=== PATIENT | male | born 1955 | race Caucasian/White ===

== ENCOUNTER 2017-08-04 18:35 | Inpatient (IN) ==
[2017-08-04] MEDS ORDERED: chlordiazePOXIDE 25 MG CAPSULE PO PRN (22:03)
[2017-08-04 22:43] LABS: Basophils % 0.4 % (0.0-0.8); Eosinophils % 0.2 % (0.00-10.9); Hematocrit 20.3 VOL% (42.0-52.0); Hemoglobin 7.2 GM/DL (14.0-18.0); Immature Granulocytes % 0.4 %; Immature Granulocytes Absolute 0.02 #; Lymphocytes % 18.5 % (21.2-54.2); Mean Corpuscular HGB Conc 35.5 GM/DL (32-36); Mean Corpuscular Hemoglobin 37 PG (27-34); Mean Corpuscular Volume 105.2 FL (87-102); Mean Platelet Volume 9.6 FL (9.6-12.0); Monocytes # 0.4 10*3/uL (0.11-0.8); Monocytes % 7.5 % (1.7-12.7); Neutrophils # 3.9 10*3/uL (1.4-7.4); Platelet Count 149 T/CUMM (130-400); Red Blood Count 1.93 MC/CUMM (3.8-5.5); Red Cell Distribution Width 11.6 % (9.3-17.3); White Blood Count 5.4 T/CUMM (4-12)
[2017-08-04] MEDS: LEVOFLOXACIN INJ 500 MG in PREMIX 1 EACH IV SCH (22:53)
[2017-08-04] MEDS: SODIUM CHLORIDE 0.9% 1,000 ML IV SCH (22:53)
[2017-08-04 23:25] LABS: Folate 6.1 NG/ML (5.4-24.0)
[2017-08-05] MEDS ORDERED: SODIUM CHLORIDE 0.9% 1,000 ML IV PRN (01:47)
[2017-08-05 08:03] LABS: Basophils % 0.5 % (0.0-0.8); Eosinophils % 0.5 % (0.00-10.9); Hematocrit 22.7 VOL% (42.0-52.0); Hemoglobin 8.3 GM/DL (14.0-18.0); Immature Granulocytes % 0.5 %; Immature Granulocytes Absolute 0.03 #; Lymphocytes # 1.2 10*3/uL (1.4-4.0); Lymphocytes % 22.1 % (21.2-54.2); Mean Corpuscular HGB Conc 36.6 GM/DL (32-36); Mean Corpuscular Hemoglobin 36 PG (27-34); Mean Corpuscular Volume 98.7 FL (87-102); Mean Platelet Volume 9.7 FL (9.6-12.0); Monocytes # 0.4 10*3/uL (0.11-0.8); Monocytes % 6.9 % (1.7-12.7); Neutrophils # 3.8 10*3/uL (1.4-7.4); Neutrophils % 69.5 % (38.7-73.9); Platelet Count 151 T/CUMM (130-400); Red Cell Distribution Width 13.9 % (9.3-17.3); White Blood Count 5.5 T/CUMM (4-12)
[2017-08-05 08:37] LABS: Albumin 2.2 G/DL (3.4-5.0); Bilirubin,Total 1.1 MG/DL (0.2-1.0); Calcium 7.8 MG/DL (8.5-10.1); Osmolality,Calculated 278.4 MOS/KG (273-304); Total Protein 5.4 G/DL (6.4-8.3)
[2017-08-05] MEDS ORDERED: PNEUMOCOCCAL VACCINE (13 VALENT) 0.5 ML SYRINGE IM ONE (09:00)
[2017-08-05 10:46] LABS: INR 1.1; PT Patient Result 11.6 SECS
[2017-08-05] MEDS ORDERED: DIAZEPAM 5 MG TABLET PO ONE (11:57)
[2017-08-05] MEDS: FOLIC ACID 1 MG TABLET PO SCH ×2 (12:13→15:18)
[2017-08-05] MEDS: MULTIVITAMIN (CENTRUM) TABLET PO SCH ×2 (12:13→15:17)
[2017-08-05] MEDS: THIAMINE 100 MG TABLET PO SCH ×2 (12:14→15:17)
[2017-08-05] MEDS: SODIUM CHLORIDE 0.9% 1,000 ML IV SCH ×2 (12:16→17:10)
[2017-08-05 13:31] LABS: HIV Antigen/Antibody Result Nonreactive (Nonreactive)
[2017-08-05] MEDS: FLUCONAZOLE 100 MG TABLET PO SCH (15:18)
[2017-08-05] MEDS ORDERED: HYDROmorphone 2 MG/1 ML VIAL IV ONE ×2 (18:25)
[2017-08-05] MEDS: LABETALOL 200 MG TABLET PO SCH (21:26)
[2017-08-05] MEDS: PANTOPRAZOLE 40 MG TABLET PO SCH (21:26)
[2017-08-05] MEDS: MINOXIDIL 10 MG TABLET PO SCH (21:26)
[2017-08-05] MEDS: LEVOFLOXACIN INJ 500 MG in PREMIX 1 EACH IV SCH (21:31)
[2017-08-06] MEDS: SODIUM CHLORIDE 0.9% 1,000 ML IV SCH ×2 (04:32→14:56)
[2017-08-06 05:13] LABS: Basophils % 0.4 % (0.0-0.8); Eosinophils % 0.6 % (0.00-10.9); Hematocrit 22.8 VOL% (42.0-52.0); Hemoglobin 8.4 GM/DL (14.0-18.0); Immature Granulocytes % 0.4 %; Immature Granulocytes Absolute 0.02 #; Lymphocytes # 1.2 10*3/uL (1.4-4.0); Lymphocytes % 21.5 % (21.2-54.2); Mean Corpuscular HGB Conc 36.8 GM/DL (32-36); Mean Corpuscular Hemoglobin 36 PG (27-34); Mean Platelet Volume 9.8 FL (9.6-12.0); Monocytes # 0.4 10*3/uL (0.11-0.8); Monocytes % 7.9 % (1.7-12.7); Neutrophils # 3.8 10*3/uL (1.4-7.4); Neutrophils % 69.2 % (38.7-73.9); Platelet Count 130 T/CUMM (130-400); Red Blood Count 2.35 MC/CUMM (3.8-5.5); Red Cell Distribution Width 15.1 % (9.3-17.3); White Blood Count 5.5 T/CUMM (4-12)
[2017-08-06 05:34] LABS: Calcium 7.6 MG/DL (8.5-10.1); Osmolality,Calculated 279.3 MOS/KG (273-304); Potassium 2.9 MMOL/L (3.5-5.1)
[2017-08-06] MEDS: PANTOPRAZOLE 40 MG TABLET PO SCH ×2 (06:27→18:52)
[2017-08-06] MEDS ORDERED: FLUCONAZOLE 100 MG TABLET PO SCH (09:00)
[2017-08-06] MEDS: FLUCONAZOLE 100 MG TABLET PO SCH (09:04)
[2017-08-06] MEDS: THIAMINE 100 MG TABLET PO SCH (09:04)
[2017-08-06] MEDS: BISACODYL 5 MG TABLET PO SCH ×2 (09:04→15:18)
[2017-08-06] MEDS: LABETALOL 200 MG TABLET PO SCH ×2 (09:04→21:18)
[2017-08-06] MEDS: MULTIVITAMIN (CENTRUM) TABLET PO SCH (09:05)
[2017-08-06] MEDS: FOLIC ACID 1 MG TABLET PO SCH (09:05)
[2017-08-06] MEDS: MINOXIDIL 10 MG TABLET PO SCH ×2 (09:05→21:17)
[2017-08-06] MEDS ORDERED: SODIUM CHLORIDE 0.9% 1,000 ML IV PRN (11:46)
[2017-08-06] MEDS ORDERED: FUROSEMIDE 20 MG/2 ML VIAL IV PRN (11:46)
[2017-08-06] MEDS ORDERED: POTASSIUM CHLORIDE 20 MEQ TABLET PO SCH (15:00)
[2017-08-06] MEDS: POTASSIUM CHLORIDE 20 MEQ/15 ML UDCUP PO SCH ×2 (15:19→21:25)
[2017-08-06] MEDS ORDERED: POLYETHYLENE GLYCOL POWDER 255 GM BOTTLE PO ONE (18:00)
[2017-08-06] MEDS ORDERED: MAGNESIUM CITRATE 300 ML BOTTLE PO ONE (21:00)
[2017-08-06] MEDS ORDERED: POTASSIUM CHLORIDE 20 MEQ/15 ML UDCUP PO SCH (21:00)
[2017-08-06] MEDS: LEVOFLOXACIN INJ 500 MG in PREMIX 1 EACH IV SCH (21:27)
[2017-08-07] MEDS: BISACODYL 5 MG TABLET PO SCH (00:14)
[2017-08-07 07:08] LABS: Basophils % 0.3 % (0.0-0.8); Eosinophils % 0.5 % (0.00-10.9); Hematocrit 31.8 VOL% (42.0-52.0); Hemoglobin 11.1 GM/DL (14.0-18.0); Immature Granulocytes % 0.3 %; Immature Granulocytes Absolute 0.02 #; Lymphocytes # 1.2 10*3/uL (1.4-4.0); Lymphocytes % 18.5 % (21.2-54.2); Mean Corpuscular HGB Conc 34.9 GM/DL (32-36); Mean Corpuscular Hemoglobin 34 PG (27-34); Mean Corpuscular Volume 96.7 FL (87-102); Mean Platelet Volume 9.9 FL (9.6-12.0); Monocytes # 0.7 10*3/uL (0.11-0.8); Neutrophils # 4.6 10*3/uL (1.4-7.4); Neutrophils % 70.4 % (38.7-73.9); Platelet Count 126 T/CUMM (130-400); Red Blood Count 3.29 MC/CUMM (3.8-5.5); Red Cell Distribution Width 16.2 % (9.3-17.3); White Blood Count 6.5 T/CUMM (4-12)
[2017-08-07 07:35] LABS: Calcium 7.8 MG/DL (8.5-10.1); Potassium 3.2 MMOL/L (3.5-5.1)
[2017-08-07] MEDS ORDERED: PROPOFOL 200 MG/20 ML VIAL IV ONE (10:07)
[2017-08-07] MEDS: MINOXIDIL 10 MG TABLET PO SCH ×2 (11:29→21:00)
[2017-08-07] MEDS: MULTIVITAMIN (CENTRUM) TABLET PO SCH (11:29)
[2017-08-07] MEDS: FOLIC ACID 1 MG TABLET PO SCH (11:29)
[2017-08-07] MEDS: FLUCONAZOLE 100 MG TABLET PO SCH ×2 (11:29→14:24)
[2017-08-07] MEDS: PANTOPRAZOLE 40 MG TABLET PO SCH ×2 (11:29→21:01)
[2017-08-07] MEDS: THIAMINE 100 MG TABLET PO SCH (11:30)
[2017-08-07] MEDS: POTASSIUM CHLORIDE 20 MEQ/15 ML UDCUP PO SCH ×3 (11:30→21:06)
[2017-08-07] MEDS: LABETALOL 200 MG TABLET PO SCH ×2 (11:30→21:06)
[2017-08-07] MEDS: SODIUM CHLORIDE 0.9% 1,000 ML IV SCH ×3 (11:46→21:07)
[2017-08-07] MEDS: LEVOFLOXACIN INJ 500 MG in PREMIX 1 EACH IV SCH (21:10)
[2017-08-08 05:39] LABS: Basophils % 0.6 % (0.0-0.8); Eosinophils # 0.1 10*3/uL (0.0-0.87); Hematocrit 31.4 VOL% (42.0-52.0); Hemoglobin 11.3 GM/DL (14.0-18.0); Immature Granulocytes % 0.4 %; Immature Granulocytes Absolute 0.03 #; Lymphocytes # 1.5 10*3/uL (1.4-4.0); Lymphocytes % 21.8 % (21.2-54.2); Mean Corpuscular Hemoglobin 34 PG (27-34); Mean Corpuscular Volume 94.3 FL (87-102); Monocytes # 0.6 10*3/uL (0.11-0.8); Monocytes % 8.9 % (1.7-12.7); Neutrophils # 4.8 10*3/uL (1.4-7.4); Neutrophils % 67.3 % (38.7-73.9); Platelet Count 135 T/CUMM (130-400); Red Blood Count 3.33 MC/CUMM (3.8-5.5); White Blood Count 7.1 T/CUMM (4-12)
[2017-08-08 06:07] LABS: Calcium 7.4 MG/DL (8.5-10.1); Osmolality,Calculated 281.8 MOS/KG (273-304); Potassium 3.4 MMOL/L (3.5-5.1)
[2017-08-08] MEDS: FOLIC ACID 1 MG TABLET PO SCH (09:56)
[2017-08-08] MEDS: MULTIVITAMIN (CENTRUM) TABLET PO SCH (09:56)
[2017-08-08] MEDS: LABETALOL 200 MG TABLET PO SCH (09:56)
[2017-08-08] MEDS: FLUCONAZOLE 100 MG TABLET PO SCH (09:56)
[2017-08-08] MEDS: SODIUM CHLORIDE 0.9% 1,000 ML IV SCH (09:56)
[2017-08-08] MEDS: PANTOPRAZOLE 40 MG TABLET PO SCH (09:56)
[2017-08-08] MEDS: THIAMINE 100 MG TABLET PO SCH (09:56)
[2017-08-08] MEDS: MINOXIDIL 10 MG TABLET PO SCH (09:56)
[2017-08-08] MEDS: POTASSIUM CHLORIDE 20 MEQ/15 ML UDCUP PO SCH (10:00)
[2017-08-08 14:01] VITALS: BP 114/67
== END 2017-08-08 15:10 | disposition home or self-care (01) | DRG 686 ==
LOC: SUATTDRO 20:53 → N.4E 20:53
PROVIDERS: ADMIT Internal Medicine; ATTEND Internal Medicine

== ENCOUNTER 2017-08-13 05:45 | Inpatient (IN) ==
[2017-08-13] MEDS ORDERED: cefTRIAXone 1,000 MG VIAL ONE (06:05)
[2017-08-13] MEDS ORDERED: ONDANSETRON 4 MG/2 ML VIAL IV PRN (08:30)
[2017-08-13] MEDS ORDERED: MAGNESIUM SULF RIDER 4 GM in PREMIX 1 EACH IV PRN (08:30)
[2017-08-13] MEDS ORDERED: ACETAMINOPHEN 325 MG TABLET PO PRN (08:30)
[2017-08-13] MEDS ORDERED: ALBUTEROL 2.5 MG/3 ML NEB RESP TX PRN (08:54)
[2017-08-13] MEDS: PANTOPRAZOLE 40 MG TABLET PO SCH (10:17)
[2017-08-13] MEDS: LEVOFLOXACIN 500 MG TABLET PO SCH (16:40)
[2017-08-13] MEDS: FUROSEMIDE 40 MG/4 ML VIAL IV SCH (16:44)
[2017-08-13] MEDS: CLINDAMYCIN 300 MG CAPSULE PO SCH (21:35)
[2017-08-13] MEDS: CARVEDILOL 3.125 MG TABLET PO SCH (21:35)
[2017-08-14 05:55] LABS: Eosinophils % 0.4 % (0.00-10.9); Hematocrit 28.5 VOL% (42.0-52.0); Immature Granulocytes % 0.7 %; Immature Granulocytes Absolute 0.05 #; Lymphocytes % 13.9 % (21.2-54.2); Mean Corpuscular HGB Conc 35.1 GM/DL (32-36); Mean Corpuscular Hemoglobin 34 PG (27-34); Mean Corpuscular Volume 96.9 FL (87-102); Monocytes # 0.6 10*3/uL (0.11-0.8); Monocytes % 8.3 % (1.7-12.7); Neutrophils # 5.5 10*3/uL (1.4-7.4); Neutrophils % 76.7 % (38.7-73.9); Platelet Count 246 T/CUMM (130-400); Red Blood Count 2.94 MC/CUMM (3.8-5.5); Red Cell Distribution Width 15.1 % (9.3-17.3); White Blood Count 7.2 T/CUMM (4-12)
[2017-08-14 06:18] LABS: Calcium 7.8 MG/DL (8.5-10.1); Potassium 3.9 MMOL/L (3.5-5.1)
[2017-08-14] MEDS: CLINDAMYCIN 300 MG CAPSULE PO SCH ×3 (07:26→20:59)
[2017-08-14] MEDS ORDERED: SPIRONOLACTONE 25 MG TABLET PO SCH (09:00)
[2017-08-14] MEDS: LISINOPRIL 2.5 MG TABLET PO SCH (09:23)
[2017-08-14] MEDS: ASPIRIN EC 81 MG TABLET PO SCH (09:24)
[2017-08-14] MEDS: FUROSEMIDE 40 MG/4 ML VIAL IV SCH ×2 (09:24→15:00)
[2017-08-14] MEDS: LEVOFLOXACIN 500 MG TABLET PO SCH (09:24)
[2017-08-14] MEDS: CARVEDILOL 3.125 MG TABLET PO SCH ×2 (09:24→20:59)
[2017-08-14] MEDS: PANTOPRAZOLE 40 MG TABLET PO SCH (09:24)
[2017-08-14] MEDS: MAGNESIUM SULF RIDER 2 GM in PREMIX 1 EACH IV PRN (10:38)
[2017-08-14] MEDS: CYPROHEPTADINE 4 MG TABLET PO SCH (20:59)
[2017-08-15] MEDS ORDERED: SODIUM CHLORIDE 0.45% 1,000 ML IV SCH (05:00)
[2017-08-15 05:39] LABS: Basophils % 0.2 % (0.0-0.8); Eosinophils # 0.1 10*3/uL (0.0-0.87); Eosinophils % 1.1 % (0.00-10.9); Hematocrit 28.1 VOL% (42.0-52.0); Hemoglobin 9.7 GM/DL (14.0-18.0); Immature Granulocytes % 0.8 %; Immature Granulocytes Absolute 0.05 #; Lymphocytes # 1.1 10*3/uL (1.4-4.0); Lymphocytes % 16.4 % (21.2-54.2); Mean Corpuscular HGB Conc 34.5 GM/DL (32-36); Mean Corpuscular Hemoglobin 33 PG (27-34); Mean Corpuscular Volume 95.9 FL (87-102); Mean Platelet Volume 10.9 FL (9.6-12.0); Monocytes # 0.5 10*3/uL (0.11-0.8); Monocytes % 8.1 % (1.7-12.7); Neutrophils # 4.7 10*3/uL (1.4-7.4); Neutrophils % 73.4 % (38.7-73.9); Platelet Count 261 T/CUMM (130-400); Red Blood Count 2.93 MC/CUMM (3.8-5.5); Red Cell Distribution Width 14.9 % (9.3-17.3); White Blood Count 6.4 T/CUMM (4-12)
[2017-08-15] MEDS: MAGNESIUM SULF RIDER 2 GM in PREMIX 1 EACH IV PRN (05:59)
[2017-08-15] MEDS ORDERED: DIAZEPAM 5 MG TABLET PO ONE (06:00)
[2017-08-15] MEDS ORDERED: diphenhydrAMINE CAP 25 MG CAPSULE PO ONE (06:00)
[2017-08-15 06:11] LABS: Calcium 7.7 MG/DL (8.5-10.1); Osmolality,Calculated 272.8 MOS/KG (273-304); Potassium 3.1 MMOL/L (3.5-5.1)
[2017-08-15 06:17] LABS: Folate 5.7 NG/ML (5.4-24.0)
[2017-08-15] MEDS: CLINDAMYCIN 300 MG CAPSULE PO SCH ×3 (06:50→21:14)
[2017-08-15] MEDS: ASPIRIN EC 81 MG TABLET PO SCH ×2 (07:01→09:57)
[2017-08-15] MEDS: LISINOPRIL 2.5 MG TABLET PO SCH ×2 (07:02→09:56)
[2017-08-15] MEDS: CARVEDILOL 3.125 MG TABLET PO SCH ×3 (07:02→21:14)
[2017-08-15] MEDS ORDERED: HEPARIN/NACL 0.9% 2 UNITS/ML 2,000 ML IV ONE (07:23)
[2017-08-15] MEDS ORDERED: MIDAZOLAM 2 MG/2 ML VIAL ONE (07:23)
[2017-08-15] MEDS ORDERED: LIDOCAINE 1% 20 ML VIAL ONE (07:23)
[2017-08-15] MEDS ORDERED: fentaNYL 100 MCG/2 ML VIAL ONE (07:23)
[2017-08-15] MEDS: FUROSEMIDE 40 MG/4 ML VIAL IV SCH ×2 (09:04→15:16)
[2017-08-15] MEDS: SPIRONOLACTONE 25 MG TABLET PO SCH (09:56)
[2017-08-15] MEDS: MULTIVITAMIN (CENTRUM) TABLET PO SCH (09:56)
[2017-08-15] MEDS: LEVOFLOXACIN 500 MG TABLET PO SCH (09:56)
[2017-08-15] MEDS: PANTOPRAZOLE 40 MG TABLET PO SCH (09:57)
[2017-08-15] MEDS: FOLIC ACID 1 MG TABLET PO SCH (09:57)
[2017-08-15] MEDS: POTASSIUM CHLORIDE 20 MEQ TABLET PO SCH (13:42)
[2017-08-15] MEDS ORDERED: MAGNESIUM HYDROXIDE SUSP 30 ML UDCUP PO PRN (16:19)
[2017-08-15] MEDS: DOCUSATE SODIUM 100 MG CAPSULE PO PRN (21:14)
[2017-08-15] MEDS: CYPROHEPTADINE 4 MG TABLET PO SCH (21:14)
[2017-08-16 04:58] LABS: Basophils % 0.3 % (0.0-0.8); Eosinophils # 0.1 10*3/uL (0.0-0.87); Eosinophils % 1.2 % (0.00-10.9); Hematocrit 30.5 VOL% (42.0-52.0); Hemoglobin 10.3 GM/DL (14.0-18.0); Immature Granulocytes % 0.8 %; Immature Granulocytes Absolute 0.06 #; Lymphocytes # 1.4 10*3/uL (1.4-4.0); Lymphocytes % 19.2 % (21.2-54.2); Mean Corpuscular HGB Conc 33.8 GM/DL (32-36); Mean Corpuscular Hemoglobin 33 PG (27-34); Mean Corpuscular Volume 97.4 FL (87-102); Mean Platelet Volume 10.5 FL (9.6-12.0); Monocytes # 0.7 10*3/uL (0.11-0.8); Monocytes % 9.2 % (1.7-12.7); Neutrophils # 5.2 10*3/uL (1.4-7.4); Neutrophils % 69.3 % (38.7-73.9); Platelet Count 289 T/CUMM (130-400); Red Blood Count 3.13 MC/CUMM (3.8-5.5); Red Cell Distribution Width 14.6 % (9.3-17.3); White Blood Count 7.5 T/CUMM (4-12)
[2017-08-16] MEDS: CLINDAMYCIN 300 MG CAPSULE PO SCH ×3 (05:28→21:23)
[2017-08-16 05:33] LABS: Calcium 7.8 MG/DL (8.5-10.1); Magnesium 2.1 MG/DL (1.8-2.4); Osmolality,Calculated 276.5 MOS/KG (273-304); Potassium 3.5 MMOL/L (3.5-5.1)
[2017-08-16 05:35] LABS: Calcium 7.8 MG/DL (8.5-10.1); Osmolality,Calculated 276.5 MOS/KG (273-304); Potassium 3.6 MMOL/L (3.5-5.1)
[2017-08-16 05:42] LABS: % Iron Saturation 44.4 % (18-50); Ferritin 1703.1 ng/ml (26-388)
[2017-08-16 05:44] LABS: Folate 8.1 NG/ML (5.4-24.0)
[2017-08-16] MEDS: FUROSEMIDE 40 MG/4 ML VIAL IV SCH ×2 (08:38→15:11)
[2017-08-16] MEDS: MULTIVITAMIN (CENTRUM) TABLET PO SCH (08:39)
[2017-08-16] MEDS: PANTOPRAZOLE 40 MG TABLET PO SCH (08:39)
[2017-08-16] MEDS: LISINOPRIL 2.5 MG TABLET PO SCH (08:39)
[2017-08-16] MEDS: FOLIC ACID 1 MG TABLET PO SCH (08:40)
[2017-08-16] MEDS: SPIRONOLACTONE 25 MG TABLET PO SCH (08:40)
[2017-08-16] MEDS: DOCUSATE SODIUM 100 MG CAPSULE PO PRN (08:40)
[2017-08-16] MEDS: CARVEDILOL 3.125 MG TABLET PO SCH (08:40)
[2017-08-16] MEDS: LEVOFLOXACIN 500 MG TABLET PO SCH (08:40)
[2017-08-16] MEDS: ASPIRIN EC 81 MG TABLET PO SCH (08:41)
[2017-08-16] MEDS: POTASSIUM CHLORIDE 20 MEQ TABLET PO SCH (08:50)
[2017-08-16] MEDS: CYPROHEPTADINE 4 MG TABLET PO SCH (21:23)
[2017-08-17 05:34] LABS: Basophils % 0.4 % (0.0-0.8); Eosinophils # 0.1 10*3/uL (0.0-0.87); Eosinophils % 1.4 % (0.00-10.9); Hematocrit 32.7 VOL% (42.0-52.0); Hemoglobin 11.5 GM/DL (14.0-18.0); Immature Granulocytes % 0.8 %; Immature Granulocytes Absolute 0.07 #; Lymphocytes # 1.7 10*3/uL (1.4-4.0); Lymphocytes % 18.4 % (21.2-54.2); Mean Corpuscular HGB Conc 35.2 GM/DL (32-36); Mean Corpuscular Hemoglobin 34 PG (27-34); Mean Corpuscular Volume 96.5 FL (87-102); Mean Platelet Volume 10.7 FL (9.6-12.0); Monocytes % 10.5 % (1.7-12.7); Neutrophils # 6.2 10*3/uL (1.4-7.4); Neutrophils % 68.5 % (38.7-73.9); Platelet Count 373 T/CUMM (130-400); Red Blood Count 3.39 MC/CUMM (3.8-5.5); Red Cell Distribution Width 14.7 % (9.3-17.3); White Blood Count 9.1 T/CUMM (4-12)
[2017-08-17 06:03] LABS: Calcium 8.3 MG/DL (8.5-10.1); Osmolality,Calculated 275.5 MOS/KG (273-304); Potassium 4.8 MMOL/L (3.5-5.1)
[2017-08-17] MEDS: CLINDAMYCIN 300 MG CAPSULE PO SCH ×3 (06:10→21:55)
[2017-08-17] MEDS: POTASSIUM CHLORIDE 20 MEQ TABLET PO SCH (08:27)
[2017-08-17] MEDS: SPIRONOLACTONE 25 MG TABLET PO SCH (08:27)
[2017-08-17] MEDS: LEVOFLOXACIN 500 MG TABLET PO SCH (08:27)
[2017-08-17] MEDS: LISINOPRIL 2.5 MG TABLET PO SCH (08:27)
[2017-08-17] MEDS: CARVEDILOL 3.125 MG TABLET PO SCH (08:28)
[2017-08-17] MEDS: FOLIC ACID 1 MG TABLET PO SCH (08:28)
[2017-08-17] MEDS: FUROSEMIDE 40 MG/4 ML VIAL IV SCH (08:28)
[2017-08-17] MEDS: ASPIRIN EC 81 MG TABLET PO SCH (08:28)
[2017-08-17] MEDS: MULTIVITAMIN (CENTRUM) TABLET PO SCH (08:28)
[2017-08-17] MEDS: PANTOPRAZOLE 40 MG TABLET PO SCH (08:28)
[2017-08-17] MEDS: NICOTINE 21 MG/24 HR PATCH TRANSDERM SCH (15:11)
[2017-08-17] MEDS: FUROSEMIDE 40 MG TABLET PO SCH (15:12)
[2017-08-17] MEDS: CYPROHEPTADINE 4 MG TABLET PO SCH (21:55)
[2017-08-18] MEDS: ZALEPLON 5 MG CAPSULE PO PRN ×2 (00:25→21:32)
[2017-08-18 05:34] LABS: Basophils # 0.1 10*3/uL (0.0-0.2); Basophils % 0.5 % (0.0-0.8); Eosinophils # 0.1 10*3/uL (0.0-0.87); Eosinophils % 1.2 % (0.00-10.9); Hematocrit 32.2 VOL% (42.0-52.0); Hemoglobin 11.4 GM/DL (14.0-18.0); Immature Granulocytes % 1.4 %; Immature Granulocytes Absolute 0.13 #; Lymphocytes # 1.7 10*3/uL (1.4-4.0); Lymphocytes % 17.8 % (21.2-54.2); Mean Corpuscular HGB Conc 35.4 GM/DL (32-36); Mean Corpuscular Hemoglobin 33 PG (27-34); Mean Corpuscular Volume 94.4 FL (87-102); Mean Platelet Volume 10.5 FL (9.6-12.0); Monocytes % 10.2 % (1.7-12.7); Neutrophils # 6.6 10*3/uL (1.4-7.4); Neutrophils % 68.9 % (38.7-73.9); Platelet Count 327 T/CUMM (130-400); Red Blood Count 3.41 MC/CUMM (3.8-5.5); Red Cell Distribution Width 14.6 % (9.3-17.3); White Blood Count 9.6 T/CUMM (4-12)
[2017-08-18 06:00] LABS: Calcium 8.2 MG/DL (8.5-10.1); Osmolality,Calculated 272.8 MOS/KG (273-304); Potassium 4.2 MMOL/L (3.5-5.1)
[2017-08-18] MEDS: CLINDAMYCIN 300 MG CAPSULE PO SCH ×4 (06:39→21:32)
[2017-08-18] MEDS: PANTOPRAZOLE 40 MG TABLET PO SCH (08:45)
[2017-08-18] MEDS: MULTIVITAMIN (CENTRUM) TABLET PO SCH (08:45)
[2017-08-18] MEDS: FUROSEMIDE 40 MG TABLET PO SCH ×2 (08:45→21:37)
[2017-08-18] MEDS: FOLIC ACID 1 MG TABLET PO SCH (08:45)
[2017-08-18] MEDS: CARVEDILOL 3.125 MG TABLET PO SCH (08:45)
[2017-08-18] MEDS: ASPIRIN EC 81 MG TABLET PO SCH (08:45)
[2017-08-18] MEDS: SPIRONOLACTONE 25 MG TABLET PO SCH (08:45)
[2017-08-18] MEDS: LISINOPRIL 2.5 MG TABLET PO SCH (08:45)
[2017-08-18] MEDS: POTASSIUM CHLORIDE 20 MEQ TABLET PO SCH (08:46)
[2017-08-18] MEDS: LEVOFLOXACIN 500 MG TABLET PO SCH (08:46)
[2017-08-18] MEDS: NICOTINE 21 MG/24 HR PATCH TRANSDERM SCH (08:47)
[2017-08-18] MEDS: CYPROHEPTADINE 4 MG TABLET PO SCH (21:32)
[2017-08-19 05:22] LABS: Basophils # 0.1 10*3/uL (0.0-0.2); Basophils % 0.6 % (0.0-0.8); Eosinophils # 0.1 10*3/uL (0.0-0.87); Eosinophils % 1.3 % (0.00-10.9); Hematocrit 34.4 VOL% (42.0-52.0); Hemoglobin 12.1 GM/DL (14.0-18.0); Immature Granulocytes % 1.4 %; Immature Granulocytes Absolute 0.15 #; Lymphocytes % 18.2 % (21.2-54.2); Mean Corpuscular HGB Conc 35.2 GM/DL (32-36); Mean Corpuscular Hemoglobin 34 PG (27-34); Mean Corpuscular Volume 96.1 FL (87-102); Mean Platelet Volume 10.6 FL (9.6-12.0); Monocytes # 1.2 10*3/uL (0.11-0.8); Monocytes % 11.3 % (1.7-12.7); Neutrophils # 7.2 10*3/uL (1.4-7.4); Neutrophils % 67.2 % (38.7-73.9); Platelet Count 351 T/CUMM (130-400); Red Blood Count 3.58 MC/CUMM (3.8-5.5); Red Cell Distribution Width 14.8 % (9.3-17.3); White Blood Count 10.7 T/CUMM (4-12)
[2017-08-19 05:56] LABS: Calcium 8.5 MG/DL (8.5-10.1); Osmolality,Calculated 266.4 MOS/KG (273-304); Potassium 4.7 MMOL/L (3.5-5.1)
[2017-08-19] MEDS: CLINDAMYCIN 300 MG CAPSULE PO SCH ×2 (06:35→13:17)
[2017-08-19] MEDS: SPIRONOLACTONE 25 MG TABLET PO SCH (09:16)
[2017-08-19] MEDS: MULTIVITAMIN (CENTRUM) TABLET PO SCH (09:17)
[2017-08-19] MEDS: LEVOFLOXACIN 500 MG TABLET PO SCH (09:17)
[2017-08-19] MEDS: CARVEDILOL 3.125 MG TABLET PO SCH (09:17)
[2017-08-19] MEDS: ASPIRIN EC 81 MG TABLET PO SCH (09:17)
[2017-08-19] MEDS: POTASSIUM CHLORIDE 20 MEQ TABLET PO SCH (09:17)
[2017-08-19] MEDS: FUROSEMIDE 40 MG TABLET PO SCH (09:17)
[2017-08-19] MEDS: FOLIC ACID 1 MG TABLET PO SCH (09:17)
[2017-08-19] MEDS: LISINOPRIL 2.5 MG TABLET PO SCH (09:17)
[2017-08-19] MEDS: NICOTINE 21 MG/24 HR PATCH TRANSDERM SCH (09:18)
[2017-08-19] MEDS: PANTOPRAZOLE 40 MG TABLET PO SCH (09:18)
[2017-08-19 12:09] VITALS: BP 122/84
== END 2017-08-19 16:11 | disposition home or self-care (01) | DRG 286 ==
LOC: EDUNIT# → EDBD → N.ED 05:45 → SUATTDRO 07:14 → N.EDINP 07:14 → N.TELEN 08:25
PROVIDERS: ADMIT Internal Medicine; ATTEND Internal Medicine
PROC: CLCCHCL (ICD-10-PCS; 2017-08-15 07:45)

== ENCOUNTER 2017-08-30 06:06 | Inpatient (IN) ==
[~2017-08-30 06:06] MED LIST: cefTRIAXone 1,000 MG in SYRINGE 1 EACH IV ONE
[2017-08-30] MEDS ORDERED: SODIUM CHLORIDE 0.9% 250 ML IV SCH (07:00)
[2017-08-30] MEDS ORDERED: cefTRIAXone 1,000 MG VIAL ONE (07:19)
[2017-08-30] MEDS ORDERED: HEPARIN/NACL 0.9% 2 UNITS/ML 500 ML IV ONE (07:34)
[2017-08-30] MEDS ORDERED: BUPIVACAINE 0.25% 50 ML VIAL ONE (07:36)
[2017-08-30 07:46] LABS: Calcium 9.2 MG/DL (8.5-10.1)
[2017-08-30 09:10] LABS: ABG Base Excess 3.9 MMOL/L (-2.5-2.5); ABG HCO3 27.9 MMOL/L (20-26); ABG PCO2 43.9 MM HG (35-48); ABG PH 7.425 (7.35-7.45); ABG TCO2 25.9 MMOL/L (23-27); Glucose Heart Surgery 129 MG/DL (74-106); Hematocrit Heart Surgery 33.1 PERCENT (42-52); Hemoglobin Heart Surgery 10.7 G/DL (14.0-18.0); Potassium Heart/CVR 3.6 MMOL/L (3.5-5.1)
[2017-08-30 09:16] LABS: Apearance,Urine Slightly Hazy (Clear); Bilirubin,Urine Negative (Negative); Blood, Urine Negative (Negative); Glucose,Urine (UA) Negative (Negative); Hyaline Casts,Urine 2 /LPF (0-3); Ketones,Urine Negative (Negative); Mucus,Urine Occasional /LPF (Occasional); Nitrite,Urine Negative (Negative); Protein,Urine Negative; RBC,Urine 1 /HPF (0-4); Squamous Epithelial Cell,Urine Occasional /HPF (0-10); Urine Color Yellow (Yellow); Urine Specific Gravity 1.012 (1.001-1.035); Urine Urobilinogen < 2.0 EU/DL (0.2-1.0); WBC,Urine 1 /HPF (0-6)
[2017-08-30] MEDS ORDERED: ALBUMIN 5% 12.5 GM/250 ML VIAL IV ONE ×2 (09:29→13:25)
[2017-08-30] MEDS ORDERED: SODIUM CHLORIDE 0.9% 1,000 ML IV SCH (13:00)
[2017-08-30] MEDS ORDERED: NALOXONE 0.4 MG/ML VIAL IV PRN ×2 (13:01→14:22)
[2017-08-30] MEDS ORDERED: PANTOPRAZOLE 40 MG VIAL IV ONE (13:03)
[2017-08-30] MEDS ORDERED: SEVOFLURANE 1 UNIT/15 MINUTE INH ONE (13:25)
[2017-08-30] MEDS ORDERED: HYDROmorphone 2 MG/1 ML VIAL ONE (13:25)
[2017-08-30] MEDS ORDERED: MIDAZOLAM 2 MG/2 ML VIAL ONE (13:25)
[2017-08-30] MEDS ORDERED: DOPamine 800 MG/250 ML PREMIX IV ONE (13:26)
[2017-08-30] MEDS ORDERED: SODIUM CHLORIDE 0.9% 1,000 ML IV ONE (13:26)
[2017-08-30] MEDS ORDERED: ETOMIDATE 40 MG/20 ML VIAL IV ONE (13:26)
[2017-08-30] MEDS ORDERED: ONDANSETRON 4 MG/2 ML VIAL ONE (13:26)
[2017-08-30] MEDS ORDERED: ePHEDrine 50 MG/ML AMP ONE (13:26)
[2017-08-30] MEDS ORDERED: ROCURONIUM 100 MG/10 ML VIAL IV ONE (13:26)
[2017-08-30] MEDS ORDERED: HYDROmorphone PCA 30 MG/30 ML SYRINGE IV SCH (13:30)
[2017-08-30] MEDS ORDERED: ACETAMINOPHEN 1,000 MG/100 ML VIAL IV ONE (14:21)
[2017-08-30] MEDS ORDERED: ACETAMINOPHEN INJ 1,000 MG in PREMIX 1 EACH IV ONE (14:24)
[2017-08-30] MEDS: MORPHINE PCA 30 MG/30 ML SYRINGE IV SCH (14:39)
[2017-08-30] MEDS ORDERED: diphenhydrAMINE 50 MG/1 ML VIAL IV PRN (15:57)
[2017-08-30 16:47] LABS: Hematocrit 37.6 VOL% (42.0-52.0); Hemoglobin 12.5 GM/DL (14.0-18.0)
[2017-08-30] MEDS ORDERED: ALBUTEROL/IPRATROPIUM 3 ML NEB RESP TX PRN (17:33)
[2017-08-30] MEDS ORDERED: PANTOPRAZOLE 40 MG TABLET PO SCH (19:00)
[2017-08-30 19:16] LABS: PT Patient Result 10.6 SECS; Partial Thromboplastin Time 28.8 SECS (0-40)
[2017-08-30] MEDS: DOCUSATE SODIUM 100 MG CAPSULE PO SCH (21:09)
[2017-08-30] MEDS: PANTOPRAZOLE 40 MG TABLET PO SCH (21:09)
[2017-08-31] MEDS ORDERED: LORazepam 2 MG/1 ML VIAL IV ONE (01:30)
[2017-08-31 05:12] LABS: Basophils % 0.1 % (0.0-0.8); Hematocrit 34.7 VOL% (42.0-52.0); Hemoglobin 12.1 GM/DL (14.0-18.0); Immature Granulocytes % 0.4 %; Immature Granulocytes Absolute 0.03 #; Lymphocytes # 0.6 10*3/uL (1.4-4.0); Lymphocytes % 8.5 % (21.2-54.2); Mean Corpuscular HGB Conc 34.9 GM/DL (32-36); Mean Corpuscular Hemoglobin 31 PG (27-34); Mean Corpuscular Volume 89.7 FL (87-102); Mean Platelet Volume 10.4 FL (9.6-12.0); Monocytes # 0.6 10*3/uL (0.11-0.8); Monocytes % 8.3 % (1.7-12.7); Neutrophils # 6.2 10*3/uL (1.4-7.4); Neutrophils % 82.7 % (38.7-73.9); Platelet Count 159 T/CUMM (130-400); Red Blood Count 3.87 MC/CUMM (3.8-5.5); Red Cell Distribution Width 19.7 % (9.3-17.3); White Blood Count 7.5 T/CUMM (4-12)
[2017-08-31 06:24] LABS: Calcium 8.6 MG/DL (8.5-10.1); Potassium 4.6 MMOL/L (3.5-5.1)
[2017-08-31] MEDS: DOCUSATE SODIUM 100 MG CAPSULE PO SCH ×2 (08:26→20:10)
[2017-08-31] MEDS: FOLIC ACID 1 MG TABLET PO SCH (08:26)
[2017-08-31] MEDS: PANTOPRAZOLE 40 MG TABLET PO SCH ×2 (08:26→20:10)
[2017-08-31] MEDS ORDERED: BISACODYL 5 MG TABLET PO ONE (15:14)
[2017-08-31] MEDS ORDERED: CARVEDILOL 12.5 MG TABLET PO SCH (17:00)
[2017-08-31] MEDS: FUROSEMIDE 20 MG/2 ML VIAL IV SCH ×2 (17:11)
[2017-08-31] MEDS: MORPHINE PCA 30 MG/30 ML SYRINGE IV SCH (17:15)
[2017-08-31] MEDS: NICOTINE 7 MG/24 HR PATCH TRANSDERM SCH (17:15)
[2017-08-31] MEDS: CARVEDILOL 3.125 MG TABLET PO SCH (20:10)
[2017-08-31] MEDS ORDERED: ACETAMINOPHEN 325 MG TABLET PO PRN (21:46)
[2017-09-01 04:37] LABS: Basophils % 0.2 % (0.0-0.8); Eosinophils % 0.2 % (0.00-10.9); Hematocrit 32.8 VOL% (42.0-52.0); Hemoglobin 11.2 GM/DL (14.0-18.0); Immature Granulocytes % 0.2 %; Immature Granulocytes Absolute 0.01 #; Lymphocytes % 22.6 % (21.2-54.2); Mean Corpuscular HGB Conc 34.1 GM/DL (32-36); Mean Corpuscular Hemoglobin 31 PG (27-34); Mean Corpuscular Volume 91.9 FL (87-102); Mean Platelet Volume 10.3 FL (9.6-12.0); Monocytes # 0.5 10*3/uL (0.11-0.8); Monocytes % 11.8 % (1.7-12.7); Neutrophils # 2.9 10*3/uL (1.4-7.4); Platelet Count 128 T/CUMM (130-400); Red Blood Count 3.57 MC/CUMM (3.8-5.5); Red Cell Distribution Width 19.6 % (9.3-17.3); White Blood Count 4.5 T/CUMM (4-12)
[2017-09-01 05:16] LABS: Calcium 8.1 MG/DL (8.5-10.1); Magnesium 1.9 MG/DL (1.8-2.4); Osmolality,Calculated 275.8 MOS/KG (273-304); Potassium 4.1 MMOL/L (3.5-5.1)
[2017-09-01] MEDS: POTASSIUM CHLORIDE 20 MEQ TABLET PO SCH (08:10)
[2017-09-01] MEDS: DOCUSATE SODIUM 100 MG CAPSULE PO SCH ×2 (08:10→21:06)
[2017-09-01] MEDS: FOLIC ACID 1 MG TABLET PO SCH (08:10)
[2017-09-01] MEDS: CARVEDILOL 3.125 MG TABLET PO SCH (08:10)
[2017-09-01] MEDS: PANTOPRAZOLE 40 MG TABLET PO SCH ×2 (08:10→21:06)
[2017-09-01] MEDS: FUROSEMIDE 20 MG/2 ML VIAL IV SCH (08:12)
[2017-09-01] MEDS: NICOTINE 7 MG/24 HR PATCH TRANSDERM SCH ×2 (08:12→21:48)
[2017-09-01] MEDS ORDERED: MORPHINE 2 MG/1 ML SYRINGE IV PRN (11:17)
[2017-09-01] MEDS: ACETAMINOPHEN 325 MG TABLET PO SCH ×2 (11:49→16:27)
[2017-09-01] MEDS ORDERED: CARVEDILOL 6.25 MG TABLET PO SCH (14:25)
[2017-09-01] MEDS: FUROSEMIDE 40 MG TABLET PO SCH (16:27)
[2017-09-01] MEDS ORDERED: METOPROLOL TARTRATE 50 MG TABLET PO ONE (16:41)
[2017-09-01] MEDS: ENOXAPARIN 40 MG/0.4 ML SYRINGE SUBCUT SCH (21:05)
[2017-09-01] MEDS: CYPROHEPTADINE 4 MG TABLET PO SCH (21:06)
[2017-09-01] MEDS: METOPROLOL TARTRATE 50 MG TABLET PO SCH (21:06)
[2017-09-02] MEDS: ACETAMINOPHEN 325 MG TABLET PO SCH ×4 (05:40→16:34)
[2017-09-02 07:13] LABS: Hematocrit 35.9 VOL% (42.0-52.0); Hemoglobin 12.8 GM/DL (14.0-18.0)
[2017-09-02 07:36] LABS: Calcium 8.2 MG/DL (8.5-10.1); Magnesium 1.9 MG/DL (1.8-2.4); Osmolality,Calculated 275.8 MOS/KG (273-304); Potassium 3.7 MMOL/L (3.5-5.1)
[2017-09-02] MEDS: METOPROLOL TARTRATE 50 MG TABLET PO SCH ×2 (09:31→21:33)
[2017-09-02] MEDS: FUROSEMIDE 40 MG TABLET PO SCH ×2 (09:31→16:34)
[2017-09-02] MEDS: FOLIC ACID 1 MG TABLET PO SCH (09:31)
[2017-09-02] MEDS: PANTOPRAZOLE 40 MG TABLET PO SCH ×2 (09:31→21:33)
[2017-09-02] MEDS: DOCUSATE SODIUM 100 MG CAPSULE PO SCH ×2 (09:32→21:35)
[2017-09-02] MEDS: ASPIRIN EC 81 MG TABLET PO SCH (09:32)
[2017-09-02] MEDS: POTASSIUM CHLORIDE 20 MEQ TABLET PO SCH (09:33)
[2017-09-02] MEDS: MULTIVITAMIN (CENTRUM) TABLET PO SCH (09:33)
[2017-09-02] MEDS ORDERED: BISACODYL 10 MG SUPP RECTAL ONE (10:02)
[2017-09-02] MEDS: NICOTINE 7 MG/24 HR PATCH TRANSDERM SCH (10:39)
[2017-09-02] MEDS: ENOXAPARIN 40 MG/0.4 ML SYRINGE SUBCUT SCH (21:33)
[2017-09-02] MEDS: CYPROHEPTADINE 4 MG TABLET PO SCH (21:33)
[2017-09-03] MEDS: ACETAMINOPHEN 325 MG TABLET PO SCH ×3 (00:23→10:43)
[2017-09-03] MEDS: POTASSIUM CHLORIDE 20 MEQ TABLET PO SCH (08:22)
[2017-09-03] MEDS: MULTIVITAMIN (CENTRUM) TABLET PO SCH (08:22)
[2017-09-03] MEDS: DOCUSATE SODIUM 100 MG CAPSULE PO SCH (08:22)
[2017-09-03] MEDS: FOLIC ACID 1 MG TABLET PO SCH (08:22)
[2017-09-03] MEDS: METOPROLOL TARTRATE 50 MG TABLET PO SCH (08:22)
[2017-09-03] MEDS: ASPIRIN EC 81 MG TABLET PO SCH (08:22)
[2017-09-03] MEDS: FUROSEMIDE 40 MG TABLET PO SCH (08:22)
[2017-09-03] MEDS: PANTOPRAZOLE 40 MG TABLET PO SCH (08:22)
[2017-09-03] MEDS: NICOTINE 7 MG/24 HR PATCH TRANSDERM SCH (08:26)
[2017-09-03] MEDS ORDERED: INFLUENZA VIRUS VACCINE 0.5 ML SYRINGE IM ONE (09:00)
[2017-09-03 10:13] VITALS: BP 157/100
== END 2017-09-03 10:52 | DRG 656 ==
LOC: N.OR 06:06 → N.SDSINP 06:08 → N.CC 12:57 → N.5E 09-01 11:16
PROVIDERS: ADMIT Surgery; ATTEND Surgery

== ENCOUNTER 2018-01-09 11:15 | Inpatient (IN) ==
[2018-01-09 13:19] LABS: Basophils % 0.2 % (0.0-0.8); Hematocrit 39.9 VOL% (42.0-52.0); Hemoglobin 14.4 GM/DL (14.0-18.0); Immature Granulocytes % 0.8 %; Immature Granulocytes Absolute 0.09 #; Lymphocytes # 1.4 10*3/uL (1.4-4.0); Lymphocytes % 11.6 % (21.2-54.2); Mean Corpuscular HGB Conc 36.1 GM/DL (32-36); Mean Corpuscular Hemoglobin 36 PG (27-34); Mean Corpuscular Volume 100.8 FL (87-102); Mean Platelet Volume 9.9 FL (9.6-12.0); Monocytes # 0.8 10*3/uL (0.11-0.8); Neutrophils # 9.6 10*3/uL (1.4-7.4); Neutrophils % 80.4 % (38.7-73.9); Platelet Count 183 T/CUMM (130-400); Red Blood Count 3.96 MC/CUMM (3.8-5.5); Red Cell Distribution Width 13.9 % (9.3-17.3); White Blood Count 11.9 T/CUMM (4-12)
[2018-01-09] MEDS ORDERED: METOCLOPRAMIDE 10 MG/2 ML VIAL IV STA (13:22)
[2018-01-09] MEDS ORDERED: ONDANSETRON 4 MG/2 ML VIAL IV STA (13:22)
[2018-01-09] MEDS ORDERED: PANTOPRAZOLE 40 MG VIAL IV STA (13:22)
[2018-01-09 13:25] LABS: INR 1.2; PT Patient Result 12.6 SECS; Partial Thromboplastin Time 32.3 SECS (0-40)
[2018-01-09 13:41] LABS: Alanine Aminotransferase 22 U/L (16-61); Albumin 2.1 G/DL (3.4-5.0); Alkaline Phosphatase 121 U/L (45-117); Aspartate Amino Transferase 26 U/L (0-37); Blood Urea Nitrogen 20 MG/DL (7-18); Calcium 8.5 MG/DL (8.5-10.1); Glucose 134 MG/DL (74-106); Potassium 2.9 MMOL/L (3.5-5.1); Sodium 136 MMOL/L (136-145); Total Protein 6.6 G/DL (6.4-8.3)
[2018-01-09] MEDS ORDERED: POTASSIUM BICARB EFFERVESCENT 25 MEQ TABLET PO ONE (14:11)
[2018-01-09] MEDS ORDERED: SODIUM CHLORIDE 0.9% 1,000 ML IV STA (16:32)
[2018-01-09] MEDS ORDERED: ONDANSETRON 4 MG/2 ML VIAL IV PRN ×2 (17:42→21:29)
[2018-01-09] MEDS ORDERED: DOCUSATE SODIUM 100 MG CAPSULE PO PRN (17:42)
[2018-01-09] MEDS ORDERED: PROMETHAZINE 25 MG/1 ML VIAL IM PRN (17:42)
[2018-01-09] MEDS ORDERED: diphenhydrAMINE CAP 25 MG CAPSULE PO PRN (17:42)
[2018-01-09] MEDS ORDERED: NICOTINE 21 MG/24 HR PATCH TRANSDERM PRN (17:42)
[2018-01-09] MEDS ORDERED: ACETAMINOPHEN 325 MG TABLET PO PRN ×2 (17:42→21:29)
[2018-01-09] MEDS ORDERED: traZODone 50 MG TABLET PO PRN (17:42)
[2018-01-09] MEDS ORDERED: guaiFENesin/DM ER 600-30 MG TABLET PO PRN (17:42)
[2018-01-09] MEDS ORDERED: PIPERACILLIN/TAZOBACTAM 3,375 MG in SODIUM CHLORIDE 0.9% 100 ML IV SCH (18:00)
[2018-01-09] MEDS ORDERED: SODIUM CHLORIDE 0.9% 1,000 ML IV SCH (18:00)
[2018-01-09] MEDS ORDERED: ALBUTEROL/IPRATROPIUM 3 ML NEB RESP TX SCH (18:00)
[2018-01-09] MEDS ORDERED: chlordiazePOXIDE 25 MG CAPSULE PO PRN (18:29)
[2018-01-09] MEDS ORDERED: IPRATROPIUM 500 MCG/2.5 ML NEB RESP TX SCH (19:00)
[2018-01-09] MEDS: ALBUTEROL/IPRATROPIUM 3 ML NEB RESP TX SCH (20:23)
[2018-01-09] MEDS ORDERED: ENOXAPARIN 40 MG/0.4 ML SYRINGE SUBCUT SCH (21:00)
[2018-01-09] MEDS ORDERED: MAGNESIUM SULF RIDER 2 GM in PREMIX 1 EACH IV PRN (21:29)
[2018-01-09] MEDS ORDERED: MAGNESIUM SULF RIDER 4 GM in PREMIX 1 EACH IV PRN (21:29)
[2018-01-09] MEDS ORDERED: POTASSIUM CHLORIDE RIDER 10 MEQ in PREMIX 1 EACH IV PRN (21:29)
[2018-01-09] MEDS: PIPERACILLIN/TAZOBACTAM 3,375 MG in SODIUM CHLORIDE 0.9% 100 ML IV SCH (21:36)
[2018-01-09] MEDS: POTASSIUM CHLORIDE 20 MEQ/15 ML UDCUP PO SCH (22:01)
[2018-01-09] MEDS: DOCUSATE SODIUM 100 MG CAPSULE PO SCH (22:02)
[2018-01-09] MEDS: CARVEDILOL 3.125 MG TABLET PO SCH (22:16)
[2018-01-09] MEDS: PANTOPRAZOLE 40 MG TABLET PO SCH (22:16)
[2018-01-09] MEDS: SODIUM CHLOR 0.9% KCL 40 MEQ 40 MEQ/1,000 ML BAG IV SCH (22:23)
[2018-01-09] MEDS: LEVOFLOXACIN INJ 750 MG in PREMIX 1 EACH IV SCH (22:27)
[2018-01-10] MEDS: metroNIDAZOLE INJ 500 MG in PREMIX 1 EACH IV SCH ×4 (00:02→22:13)
[2018-01-10] MEDS: ALBUTEROL/IPRATROPIUM 3 ML NEB RESP TX SCH ×6 (01:10→20:18)
[2018-01-10] MEDS: PIPERACILLIN/TAZOBACTAM 3,375 MG in SODIUM CHLORIDE 0.9% 100 ML IV SCH ×3 (01:10→18:17)
[2018-01-10] MEDS: POTASSIUM CHLORIDE 20 MEQ/15 ML UDCUP PO SCH (01:15)
[2018-01-10 05:19] LABS: Basophils % 0.1 % (0.0-0.8); Eosinophils % 0.1 % (0.00-10.9); Hematocrit 31.1 VOL% (42.0-52.0); Immature Granulocytes % 1.5 %; Immature Granulocytes Absolute 0.12 #; Lymphocytes # 1.3 10*3/uL (1.4-4.0); Lymphocytes % 16.7 % (21.2-54.2); Mean Corpuscular HGB Conc 35.4 GM/DL (32-36); Mean Corpuscular Hemoglobin 36 PG (27-34); Monocytes # 0.9 10*3/uL (0.11-0.8); Monocytes % 10.9 % (1.7-12.7); NRBC # 0.02 10*3/uL; Neutrophils # 5.5 10*3/uL (1.4-7.4); Neutrophils % 70.7 % (38.7-73.9); Platelet Count 120 T/CUMM (130-400); Red Blood Count 3.05 MC/CUMM (3.8-5.5); Red Cell Distribution Width 13.8 % (9.3-17.3); White Blood Count 7.8 T/CUMM (4-12)
[2018-01-10 05:41] LABS: Atypical Lymphocytes Few; Band Neutrophils 2 % (0-10); Lymphocytes 15 % (20-55); Segmented Neutrophils 74 % (50-85); Total Cells Counted 100
[2018-01-10 05:42] LABS: Hypochromasia 1+; Macrocytosis 1+; Platelet Estimate Adequate
[2018-01-10 05:44] LABS: Albumin 1.8 G/DL (3.4-5.0); Bilirubin,Total 2.2 MG/DL (0.2-1.0); Calcium 7.6 MG/DL (8.5-10.1); Osmolality,Calculated 276.8 MOS/KG (273-304); Potassium 3.2 MMOL/L (3.5-5.1); Total Protein 5.2 G/DL (6.4-8.3)
[2018-01-10] MEDS: PANTOPRAZOLE 40 MG TABLET PO SCH ×2 (06:32→18:15)
[2018-01-10] MEDS: SODIUM CHLOR 0.9% KCL 40 MEQ 40 MEQ/1,000 ML BAG IV SCH ×2 (06:32→16:26)
[2018-01-10] MEDS: MORPHINE 4 MG/1 ML VIAL IV PRN ×3 (07:32→13:27)
[2018-01-10] MEDS ORDERED: ASPIRIN EC 81 MG TABLET PO SCH (09:00)
[2018-01-10] MEDS ORDERED: PANTOPRAZOLE 40 MG TABLET PO SCH (09:00)
[2018-01-10] MEDS ORDERED: LISINOPRIL 5 MG TABLET PO SCH (09:00)
[2018-01-10] MEDS ORDERED: MULTIVITAMIN (CENTRUM) TABLET PO SCH (09:00)
[2018-01-10] MEDS ORDERED: FOLIC ACID 1 MG TABLET PO SCH (09:00)
[2018-01-10] MEDS: MULTIVITAMIN (CENTRUM) TABLET PO SCH (10:11)
[2018-01-10] MEDS: CARVEDILOL 3.125 MG TABLET PO SCH ×2 (10:11→20:25)
[2018-01-10] MEDS: FOLIC ACID 0.4 MG TABLET PO SCH (10:11)
[2018-01-10] MEDS: THIAMINE 100 MG TABLET PO SCH (10:12)
[2018-01-10 10:29] LABS: ABG Base Excess 8.4 MMOL/L (-2.5-2.5); ABG Oxygen Saturation 89.8 % (95-100); ABG PCO2 41.2 MM HG (35-48); ABG PH 7.503 (7.35-7.45); ABG PO2 56.2 MM HG (80-95); ABG TCO2 28.6 MMOL/L (23-27)
[2018-01-10] MEDS: DOCUSATE SODIUM 100 MG CAPSULE PO SCH (20:25)
[2018-01-10] MEDS: LEVOFLOXACIN INJ 750 MG in PREMIX 1 EACH IV SCH (20:31)
[2018-01-11] MEDS: PIPERACILLIN/TAZOBACTAM 3,375 MG in SODIUM CHLORIDE 0.9% 100 ML IV SCH ×3 (02:13→18:45)
[2018-01-11] MEDS: metroNIDAZOLE INJ 500 MG in PREMIX 1 EACH IV SCH ×3 (05:43→23:00)
[2018-01-11] MEDS: SODIUM CHLOR 0.9% KCL 40 MEQ 40 MEQ/1,000 ML BAG IV SCH (05:58)
[2018-01-11] MEDS: MORPHINE 4 MG/1 ML VIAL IV PRN (05:59)
[2018-01-11] MEDS: PANTOPRAZOLE 40 MG TABLET PO SCH ×2 (06:03→21:38)
[2018-01-11 06:28] LABS: Basophils % 0.2 % (0.0-0.8); Eosinophils % 0.7 % (0.00-10.9); Hematocrit 30.1 VOL% (42.0-52.0); Hemoglobin 10.5 GM/DL (14.0-18.0); Immature Granulocytes % 0.8 %; Immature Granulocytes Absolute 0.05 #; Lymphocytes # 1.1 10*3/uL (1.4-4.0); Mean Corpuscular HGB Conc 34.9 GM/DL (32-36); Mean Corpuscular Hemoglobin 36 PG (27-34); Mean Corpuscular Volume 103.1 FL (87-102); Mean Platelet Volume 9.9 FL (9.6-12.0); Monocytes # 0.7 10*3/uL (0.11-0.8); Monocytes % 11.4 % (1.7-12.7); NRBC # 0.02 10*3/uL; Neutrophils # 4.2 10*3/uL (1.4-7.4); Neutrophils % 68.9 % (38.7-73.9); Platelet Count 126 T/CUMM (130-400); Red Blood Count 2.92 MC/CUMM (3.8-5.5); Red Cell Distribution Width 13.6 % (9.3-17.3); White Blood Count 6.1 T/CUMM (4-12)
[2018-01-11 06:48] LABS: Albumin 1.4 G/DL (3.4-5.0); Bilirubin,Total 1.1 MG/DL (0.2-1.0); Calcium 7.8 MG/DL (8.5-10.1); Potassium 3.3 MMOL/L (3.5-5.1); Total Protein 4.9 G/DL (6.4-8.3)
[2018-01-11] MEDS: ALBUTEROL/IPRATROPIUM 3 ML NEB RESP TX SCH ×4 (07:25→21:13)
[2018-01-11] MEDS ORDERED: fentaNYL 100 MCG/2 ML VIAL ONE (07:57)
[2018-01-11] MEDS ORDERED: MIDAZOLAM 2 MG/2 ML VIAL ONE (07:58)
[2018-01-11] MEDS ORDERED: ONDANSETRON 4 MG/2 ML VIAL ONE ×2 (07:58→08:46)
[2018-01-11] MEDS ORDERED: POTASSIUM CHLORIDE 20 MEQ TABLET PO ONE (08:25)
[2018-01-11] MEDS ORDERED: fentaNYL 100 MCG/2 ML VIAL IV ONE (08:57)
[2018-01-11] MEDS: FOLIC ACID 0.4 MG TABLET PO SCH (09:48)
[2018-01-11] MEDS: CARVEDILOL 3.125 MG TABLET PO SCH ×2 (09:48→21:38)
[2018-01-11] MEDS: THIAMINE 100 MG TABLET PO SCH (09:48)
[2018-01-11] MEDS: MULTIVITAMIN (CENTRUM) TABLET PO SCH (09:48)
[2018-01-11] MEDS: LEVOFLOXACIN INJ 750 MG in PREMIX 1 EACH IV SCH (21:46)
[2018-01-11] MEDS: DOCUSATE SODIUM 100 MG CAPSULE PO SCH (21:46)
[2018-01-12] MEDS: PIPERACILLIN/TAZOBACTAM 3,375 MG in SODIUM CHLORIDE 0.9% 100 ML IV SCH ×3 (02:52→18:23)
[2018-01-12 06:07] LABS: Basophils % 0.2 % (0.0-0.8); Eosinophils % 0.5 % (0.00-10.9); Hematocrit 29.8 VOL% (42.0-52.0); Hemoglobin 10.5 GM/DL (14.0-18.0); Immature Granulocytes % 0.8 %; Immature Granulocytes Absolute 0.05 #; Lymphocytes % 16.2 % (21.2-54.2); Mean Corpuscular HGB Conc 35.2 GM/DL (32-36); Mean Corpuscular Hemoglobin 37 PG (27-34); Mean Corpuscular Volume 103.8 FL (87-102); Monocytes # 0.8 10*3/uL (0.11-0.8); Monocytes % 12.6 % (1.7-12.7); Neutrophils # 4.4 10*3/uL (1.4-7.4); Neutrophils % 69.7 % (38.7-73.9); Platelet Count 134 T/CUMM (130-400); Red Blood Count 2.87 MC/CUMM (3.8-5.5); Red Cell Distribution Width 13.5 % (9.3-17.3); White Blood Count 6.3 T/CUMM (4-12)
[2018-01-12] MEDS: metroNIDAZOLE INJ 500 MG in PREMIX 1 EACH IV SCH ×3 (06:22→23:50)
[2018-01-12] MEDS: PANTOPRAZOLE 40 MG TABLET PO SCH ×2 (06:30→18:24)
[2018-01-12 06:42] LABS: Albumin 1.4 G/DL (3.4-5.0); Calcium 7.9 MG/DL (8.5-10.1); Potassium 3.7 MMOL/L (3.5-5.1)
[2018-01-12] MEDS: ALBUTEROL/IPRATROPIUM 3 ML NEB RESP TX SCH ×4 (07:34→19:19)
[2018-01-12] MEDS: FOLIC ACID 0.4 MG TABLET PO SCH (09:49)
[2018-01-12] MEDS: THIAMINE 100 MG TABLET PO SCH (09:49)
[2018-01-12] MEDS: MULTIVITAMIN (CENTRUM) TABLET PO SCH (09:49)
[2018-01-12] MEDS: CARVEDILOL 3.125 MG TABLET PO SCH ×2 (09:49→21:10)
[2018-01-12] MEDS: DOCUSATE SODIUM 100 MG CAPSULE PO SCH (21:10)
[2018-01-12] MEDS: LEVOFLOXACIN INJ 750 MG in PREMIX 1 EACH IV SCH (21:10)
[2018-01-13] MEDS: PIPERACILLIN/TAZOBACTAM 3,375 MG in SODIUM CHLORIDE 0.9% 100 ML IV SCH (02:27)
[2018-01-13] MEDS: metroNIDAZOLE INJ 500 MG in PREMIX 1 EACH IV SCH (06:21)
[2018-01-13 06:25] LABS: Basophils % 0.2 % (0.0-0.8); Eosinophils % 0.5 % (0.00-10.9); Hematocrit 29.7 VOL% (42.0-52.0); Hemoglobin 10.6 GM/DL (14.0-18.0); Immature Granulocytes % 0.5 %; Immature Granulocytes Absolute 0.03 #; Lymphocytes # 1.1 10*3/uL (1.4-4.0); Lymphocytes % 17.9 % (21.2-54.2); Mean Corpuscular HGB Conc 35.7 GM/DL (32-36); Mean Corpuscular Hemoglobin 37 PG (27-34); Mean Corpuscular Volume 103.5 FL (87-102); Mean Platelet Volume 9.7 FL (9.6-12.0); Monocytes % 14.9 % (1.7-12.7); Neutrophils # 4.2 10*3/uL (1.4-7.4); Platelet Count 184 T/CUMM (130-400); Red Blood Count 2.87 MC/CUMM (3.8-5.5); Red Cell Distribution Width 13.5 % (9.3-17.3); White Blood Count 6.4 T/CUMM (4-12)
[2018-01-13] MEDS: PANTOPRAZOLE 40 MG TABLET PO SCH (06:41)
[2018-01-13 07:01] LABS: Albumin 1.5 G/DL (3.4-5.0); Bilirubin,Total 1.1 MG/DL (0.2-1.0); Calcium 7.9 MG/DL (8.5-10.1); Osmolality,Calculated 269.8 MOS/KG (273-304); Potassium 3.5 MMOL/L (3.5-5.1); Total Protein 4.8 G/DL (6.4-8.3)
[2018-01-13] MEDS: ALBUTEROL/IPRATROPIUM 3 ML NEB RESP TX SCH ×2 (07:15→10:32)
[2018-01-13] MEDS ORDERED: CEFUROXIME 500 MG TABLET PO SCH (09:00)
[2018-01-13] MEDS: THIAMINE 100 MG TABLET PO SCH (09:37)
[2018-01-13] MEDS: CARVEDILOL 3.125 MG TABLET PO SCH (09:37)
[2018-01-13] MEDS: MULTIVITAMIN (CENTRUM) TABLET PO SCH (09:37)
[2018-01-13] MEDS: FOLIC ACID 0.4 MG TABLET PO SCH (09:37)
[2018-01-13 12:08] VITALS: BP 115/76
== END 2018-01-13 14:26 | disposition home or self-care (01) | DRG 444 ==
LOC: N.ED 11:15 → SUATTDRO 17:05 → N.EDINP 17:05 → N.3E 20:20
PROVIDERS: ADMIT Internal Medicine; ATTEND Internal Medicine

== ENCOUNTER 2018-06-28 17:43 | Inpatient (IN) ==
[2018-06-28] MEDS ORDERED: SODIUM CHLORIDE 0.9% 1,000 ML IV STA (18:40)
[2018-06-28] MEDS ORDERED: ONDANSETRON 4 MG/2 ML VIAL IV STA (18:40)
[2018-06-28 19:02] LABS: Basophils % 0.2 % (0.0-0.8); Eosinophils % 0.4 % (0.00-10.9); Hematocrit 33.3 VOL% (42.0-52.0); Hemoglobin 11.4 GM/DL (14.0-18.0); Immature Granulocytes % 0.5 %; Immature Granulocytes Absolute 0.05 #; Lymphocytes # 0.9 10*3/uL (1.4-4.0); Lymphocytes % 8.2 % (21.2-54.2); Mean Corpuscular HGB Conc 34.2 GM/DL (32-36); Mean Corpuscular Hemoglobin 34 PG (27-34); Mean Corpuscular Volume 97.9 FL (87-102); Mean Platelet Volume 10.9 FL (9.6-12.0); Monocytes # 0.6 10*3/uL (0.11-0.8); Monocytes % 6.1 % (1.7-12.7); NRBC # 0.02 10*3/uL; Neutrophils % 84.6 % (38.7-73.9); Platelet Count 166 T/CUMM (130-400); Red Cell Distribution Width 17.5 % (9.3-17.3); White Blood Count 10.6 T/CUMM (4-12)
[2018-06-28 19:25] LABS: Alanine Aminotransferase 48 U/L (16-61); Albumin 1.8 G/DL (3.4-5.0); Alkaline Phosphatase 129 U/L (45-117); Amylase 56 U/L (25-115); Aspartate Amino Transferase 216 U/L (0-37); Blood Urea Nitrogen 8 MG/DL (7-18); Calcium 6.2 MG/DL (8.5-10.1); Glucose 124 MG/DL (74-106); Osmolality,Calculated 271.8 MOS/KG (273-304); Potassium 3.8 MMOL/L (3.5-5.1); Sodium 137 MMOL/L (136-145); Total Protein 6.2 G/DL (6.4-8.3)
[2018-06-28 19:28] LABS: Ammonia 16 UMOL/L (11-32); Lactic Acid 3.1 MMOL/L (0.4-2.0)
[2018-06-28 20:36] LABS: INR 1.7; PT Patient Result 18.8 SECS; Partial Thromboplastin Time 33.1 SECS (0-40)
[2018-06-28] MEDS: PIPERACILLIN/TAZOBACTAM 3,375 MG in SODIUM CHLORIDE 0.9% 100 ML IV SCH (21:23)
[2018-06-28] MEDS ORDERED: MORPHINE 4 MG/1 ML VIAL IV PRN (21:24)
[2018-06-28] MEDS ORDERED: ENOXAPARIN 40 MG/0.4 ML SYRINGE SUBCUT SCH (21:30)
[2018-06-28] MEDS ORDERED: MAGNESIUM SULF RIDER 2 GM in PREMIX 1 EACH IV ONE (21:46)
[2018-06-28] MEDS ORDERED: LORazepam 2 MG/1 ML VIAL IV PRN (21:47)
[2018-06-28] MEDS: SODIUM CHLORIDE 0.9% 1,000 ML IV SCH (23:28)
[2018-06-28] MEDS: CALCIUM (CARBONATE)/VITAMIN D 500 MG-200 UNIT TABLET PO SCH (23:29)
[2018-06-28] MEDS: ONDANSETRON 4 MG/2 ML VIAL IV PRN (23:40)
[2018-06-28] MEDS: TEMAZEPAM 15 MG CAPSULE PO PRN (23:58)
[2018-06-29 05:47] LABS: Basophils % 0.3 % (0.0-0.8); Eosinophils # 0.1 10*3/uL (0.0-0.87); Eosinophils % 0.7 % (0.00-10.9); Hematocrit 28.9 VOL% (42.0-52.0); Hemoglobin 9.7 GM/DL (14.0-18.0); Immature Granulocytes % 0.8 %; Immature Granulocytes Absolute 0.07 #; Lymphocytes # 1.2 10*3/uL (1.4-4.0); Lymphocytes % 13.7 % (21.2-54.2); Mean Corpuscular HGB Conc 33.6 GM/DL (32-36); Mean Corpuscular Hemoglobin 33 PG (27-34); Mean Platelet Volume 10.8 FL (9.6-12.0); Monocytes # 0.6 10*3/uL (0.11-0.8); Monocytes % 6.6 % (1.7-12.7); NRBC # 0.02 10*3/uL; Neutrophils # 6.9 10*3/uL (1.4-7.4); Neutrophils % 77.9 % (38.7-73.9); Platelet Count 134 T/CUMM (130-400); Red Blood Count 2.92 MC/CUMM (3.8-5.5); Red Cell Distribution Width 17.3 % (9.3-17.3); White Blood Count 8.9 T/CUMM (4-12)
[2018-06-29 06:06] LABS: Calcium 5.9 MG/DL (8.5-10.1); Osmolality,Calculated 276.4 MOS/KG (273-304); Potassium 3.2 MMOL/L (3.5-5.1)
[2018-06-29 06:12] LABS: Albumin 1.5 G/DL (3.4-5.0); Bilirubin,Total 2.6 MG/DL (0.2-1.0); Calcium 6.1 MG/DL (8.5-10.1); Osmolality,Calculated 277.4 MOS/KG (273-304); Potassium 3.2 MMOL/L (3.5-5.1); Total Protein 4.9 G/DL (6.4-8.3)
[2018-06-29] MEDS: PIPERACILLIN/TAZOBACTAM 3,375 MG in SODIUM CHLORIDE 0.9% 100 ML IV SCH ×2 (06:19→16:50)
[2018-06-29] MEDS ORDERED: CALCIUM GLUCONATE 2,000 MG in SODIUM CHLORIDE 0.9% 100 ML IV ONE (07:24)
[2018-06-29] MEDS ORDERED: POTASSIUM CHLORIDE 20 MEQ TABLET PO ONE (07:27)
[2018-06-29] MEDS ORDERED: ASPIRIN EC 81 MG TABLET PO SCH (09:00)
[2018-06-29] MEDS ORDERED: PANTOPRAZOLE 40 MG TABLET PO SCH (09:00)
[2018-06-29] MEDS ORDERED: RIVAROXABAN 10 MG TABLET PO SCH (09:00)
[2018-06-29 10:08] LABS: Cancer Antigen 19-9 46.5 U/ML (0-37)
[2018-06-29] MEDS: ONDANSETRON 4 MG/2 ML VIAL IV PRN ×3 (10:37→17:22)
[2018-06-29] MEDS: CARVEDILOL 6.25 MG TABLET PO SCH (11:03)
[2018-06-29] MEDS: CALCIUM (CARBONATE)/VITAMIN D 500 MG-200 UNIT TABLET PO SCH ×2 (11:03→21:40)
[2018-06-29] MEDS: CHOLESTYRAMINE 4 GM PACK PO SCH ×2 (11:10→21:40)
[2018-06-29] MEDS: SODIUM CHLORIDE 0.9% 1,000 ML IV SCH (17:21)
[2018-06-29] MEDS: METOCLOPRAMIDE 10 MG/2 ML VIAL IV SCH (19:43)
[2018-06-29] MEDS: PANTOPRAZOLE 40 MG TABLET PO SCH (21:40)
[2018-06-29] MEDS: TEMAZEPAM 15 MG CAPSULE PO PRN (22:33)
[2018-06-30] MEDS: PIPERACILLIN/TAZOBACTAM 3,375 MG in SODIUM CHLORIDE 0.9% 100 ML IV SCH ×3 (00:41→19:46)
[2018-06-30] MEDS: METOCLOPRAMIDE 10 MG/2 ML VIAL IV SCH ×4 (01:43→20:22)
[2018-06-30 05:39] LABS: Basophils % 0.6 % (0.0-0.8); Eosinophils # 0.1 10*3/uL (0.0-0.87); Eosinophils % 1.7 % (0.00-10.9); Hematocrit 25.6 VOL% (42.0-52.0); Hemoglobin 8.8 GM/DL (14.0-18.0); Immature Granulocytes % 0.6 %; Immature Granulocytes Absolute 0.03 #; Lymphocytes # 1.2 10*3/uL (1.4-4.0); Lymphocytes % 21.6 % (21.2-54.2); Mean Corpuscular HGB Conc 34.4 GM/DL (32-36); Mean Corpuscular Hemoglobin 34 PG (27-34); Mean Corpuscular Volume 99.2 FL (87-102); Mean Platelet Volume 10.8 FL (9.6-12.0); Monocytes # 0.4 10*3/uL (0.11-0.8); Monocytes % 6.6 % (1.7-12.7); Neutrophils # 3.7 10*3/uL (1.4-7.4); Neutrophils % 68.9 % (38.7-73.9); Platelet Count 122 T/CUMM (130-400); Red Blood Count 2.58 MC/CUMM (3.8-5.5); Red Cell Distribution Width 16.7 % (9.3-17.3); White Blood Count 5.3 T/CUMM (4-12)
[2018-06-30 06:14] LABS: Albumin 1.3 G/DL (3.4-5.0); Bilirubin,Total 2.7 MG/DL (0.2-1.0); Calcium 6.6 MG/DL (8.5-10.1); Osmolality,Calculated 277.3 MOS/KG (273-304); Potassium 3.6 MMOL/L (3.5-5.1); Total Protein 4.7 G/DL (6.4-8.3)
[2018-06-30] MEDS ORDERED: ONDANSETRON 4 MG/2 ML VIAL ONE (08:23)
[2018-06-30] MEDS: ONDANSETRON 4 MG/2 ML VIAL IV PRN ×2 (08:26→20:20)
[2018-06-30] MEDS: CARVEDILOL 6.25 MG TABLET PO SCH (10:18)
[2018-06-30] MEDS: CHOLESTYRAMINE 4 GM PACK PO SCH ×2 (10:18→21:59)
[2018-06-30] MEDS: PANTOPRAZOLE 40 MG TABLET PO SCH ×2 (10:18→21:59)
[2018-06-30] MEDS: CALCIUM (CARBONATE)/VITAMIN D 500 MG-200 UNIT TABLET PO SCH ×2 (10:19→21:58)
[2018-06-30] MEDS: SPIRONOLACTONE 25 MG TABLET PO SCH (10:35)
[2018-06-30 10:57] LABS: Apearance,Urine Slightly Hazy (Clear); Bilirubin,Urine Negative (Negative); Blood, Urine Moderate mg/dL (Negative); Glucose,Urine (UA) Negative (Negative); Ketones,Urine Negative (Negative); Mucus,Urine Occasional /LPF (Occasional); Nitrite,Urine Negative (Negative); Protein,Urine 30 MG/DL; RBC,Urine 53 /HPF (0-4); Squamous Epithelial Cell,Urine Occasional /HPF (0-10); Urine Color Amber (Yellow); Urine Specific Gravity 1.036 (1.001-1.035); Urine Urobilinogen < 2.0 EU/DL (0.2-1.0); WBC,Urine 88 /HPF (0-6)
[2018-06-30 13:45] LABS: Neutrophils,Peritoneal Fluid 62 %; RBC,Peritoneal Fluid 1396 T/CUMM
[2018-06-30] MEDS ORDERED: MIRTAZAPINE 30 MG TABLET PO SCH (21:30)
[2018-07-01] MEDS: PIPERACILLIN/TAZOBACTAM 3,375 MG in SODIUM CHLORIDE 0.9% 100 ML IV SCH ×3 (00:41→18:42)
[2018-07-01] MEDS: METOCLOPRAMIDE 10 MG/2 ML VIAL IV SCH ×4 (02:18→19:39)
[2018-07-01] MEDS ORDERED: CALCIUM GLUCONATE 2,000 MG in SODIUM CHLORIDE 0.9% 100 ML IV ONE (08:33)
[2018-07-01] MEDS ORDERED: ALBUMIN 25% 50 GM in PREMIX 1 EACH IV ONE (08:35)
[2018-07-01] MEDS: CHOLESTYRAMINE 4 GM PACK PO SCH ×2 (08:36→20:45)
[2018-07-01] MEDS: CARVEDILOL 6.25 MG TABLET PO SCH (08:37)
[2018-07-01] MEDS: SPIRONOLACTONE 25 MG TABLET PO SCH (08:37)
[2018-07-01] MEDS: CALCIUM (CARBONATE)/VITAMIN D 500 MG-200 UNIT TABLET PO SCH (08:37)
[2018-07-01] MEDS: PANTOPRAZOLE 40 MG VIAL IV SCH ×2 (08:53→20:45)
[2018-07-01 09:38] LABS: Apearance,Urine CLEAR (Clear); Bacteria,Urine Occasional /HPF (Few); Bilirubin,Urine Negative (Negative); Blood, Urine Moderate mg/dL (Negative); Glucose,Urine (UA) Negative (Negative); Ketones,Urine Negative (Negative); Nitrite,Urine Negative (Negative); Protein,Urine Negative; RBC,Urine 2 /HPF (0-4); Squamous Epithelial Cell,Urine Occasional /HPF (0-10); Urine Color Amber (Yellow); Urine Specific Gravity 1.021 (1.001-1.035); Urine Urobilinogen < 2.0 EU/DL (0.2-1.0); WBC,Urine 10 /HPF (0-6)
[2018-07-01] MEDS: CALCIUM (CARBONATE)/VITAMIN D 600 MG-400 UNIT TABLET PO SCH ×2 (12:01→20:44)
[2018-07-01] MEDS: ONDANSETRON 4 MG/2 ML VIAL IV PRN (19:34)
[2018-07-01] MEDS: MIRTAZAPINE 30 MG TABLET PO SCH (20:44)
[2018-07-01] MEDS: TEMAZEPAM 15 MG CAPSULE PO SCH (20:45)
[2018-07-02] MEDS: METOCLOPRAMIDE 10 MG/2 ML VIAL IV SCH ×4 (02:00→20:42)
[2018-07-02] MEDS: PIPERACILLIN/TAZOBACTAM 3,375 MG in SODIUM CHLORIDE 0.9% 100 ML IV SCH ×3 (02:04→16:35)
[2018-07-02 05:26] LABS: Bilirubin,Total 1.7 MG/DL (0.2-1.0); Calcium 7.8 MG/DL (8.5-10.1); Osmolality,Calculated 282.8 MOS/KG (273-304); Potassium 4.1 MMOL/L (3.5-5.1)
[2018-07-02] MEDS: CHOLESTYRAMINE 4 GM PACK PO SCH ×2 (10:11→20:42)
[2018-07-02] MEDS: CALCIUM (CARBONATE)/VITAMIN D 600 MG-400 UNIT TABLET PO SCH ×2 (10:11→20:41)
[2018-07-02] MEDS: SPIRONOLACTONE 25 MG TABLET PO SCH (10:11)
[2018-07-02] MEDS: CARVEDILOL 6.25 MG TABLET PO SCH (10:11)
[2018-07-02] MEDS: PANTOPRAZOLE 40 MG VIAL IV SCH ×2 (10:12→20:43)
[2018-07-02] MEDS: MIRTAZAPINE 30 MG TABLET PO SCH (20:41)
[2018-07-02] MEDS: TEMAZEPAM 15 MG CAPSULE PO SCH (20:41)
[2018-07-02] MEDS: ONDANSETRON 4 MG/2 ML VIAL IV PRN (20:46)
[2018-07-03] MEDS: METOCLOPRAMIDE 10 MG/2 ML VIAL IV SCH ×3 (01:52→14:30)
[2018-07-03] MEDS: PIPERACILLIN/TAZOBACTAM 3,375 MG in SODIUM CHLORIDE 0.9% 100 ML IV SCH ×2 (01:55→09:04)
[2018-07-03 04:45] LABS: Basophils # 0.1 10*3/uL (0.0-0.2); Basophils % 1.2 % (0.0-0.8); Eosinophils # 0.1 10*3/uL (0.0-0.87); Eosinophils % 3.2 % (0.00-10.9); Hematocrit 24.7 VOL% (42.0-52.0); Hemoglobin 7.7 GM/DL (14.0-18.0); Immature Granulocytes % 0.5 %; Immature Granulocytes Absolute 0.02 #; Lymphocytes # 1.1 10*3/uL (1.4-4.0); Lymphocytes % 26.2 % (21.2-54.2); Mean Corpuscular HGB Conc 31.2 GM/DL (32-36); Mean Corpuscular Hemoglobin 32 PG (27-34); Mean Corpuscular Volume 103.8 FL (87-102); Mean Platelet Volume 10.8 FL (9.6-12.0); Monocytes # 0.4 10*3/uL (0.11-0.8); Monocytes % 9.8 % (1.7-12.7); Neutrophils # 2.4 10*3/uL (1.4-7.4); Neutrophils % 59.1 % (38.7-73.9); Platelet Count 115 T/CUMM (130-400); Red Blood Count 2.38 MC/CUMM (3.8-5.5); Red Cell Distribution Width 16.3 % (9.3-17.3); White Blood Count 4.1 T/CUMM (4-12)
[2018-07-03 05:23] LABS: Albumin 1.8 G/DL (3.4-5.0); Bilirubin,Total 1.3 MG/DL (0.2-1.0); Calcium 7.8 MG/DL (8.5-10.1); Total Protein 4.9 G/DL (6.4-8.3)
[2018-07-03] MEDS: CALCIUM (CARBONATE)/VITAMIN D 600 MG-400 UNIT TABLET PO SCH ×2 (09:05→21:07)
[2018-07-03] MEDS: SPIRONOLACTONE 25 MG TABLET PO SCH (09:05)
[2018-07-03] MEDS: CARVEDILOL 6.25 MG TABLET PO SCH (09:06)
[2018-07-03] MEDS: CHOLESTYRAMINE 4 GM PACK PO SCH ×2 (09:06→21:09)
[2018-07-03] MEDS: PANTOPRAZOLE 40 MG VIAL IV SCH (09:11)
[2018-07-03] MEDS ORDERED: FUROSEMIDE 20 MG/2 ML VIAL IV PRN (16:23)
[2018-07-03] MEDS ORDERED: SODIUM CHLORIDE 0.9% 1,000 ML IV PRN (16:23)
[2018-07-03] MEDS: METOCLOPRAMIDE 10 MG/10 ML UDCUP PO SCH ×2 (17:06→21:08)
[2018-07-03] MEDS: PANTOPRAZOLE 40 MG TABLET PO SCH (19:52)
[2018-07-03] MEDS: MIRTAZAPINE 30 MG TABLET PO SCH (21:07)
[2018-07-03] MEDS: TEMAZEPAM 15 MG CAPSULE PO SCH (21:07)
[2018-07-04 05:24] LABS: Basophils # 0.1 10*3/uL (0.0-0.2); Basophils % 1.4 % (0.0-0.8); Eosinophils # 0.1 10*3/uL (0.0-0.87); Eosinophils % 2.6 % (0.00-10.9); Hematocrit 34.1 VOL% (42.0-52.0); Immature Granulocytes % 0.4 %; Immature Granulocytes Absolute 0.02 #; Lymphocytes # 1.2 10*3/uL (1.4-4.0); Lymphocytes % 23.4 % (21.2-54.2); Mean Corpuscular HGB Conc 31.7 GM/DL (32-36); Mean Corpuscular Hemoglobin 31 PG (27-34); Mean Corpuscular Volume 96.9 FL (87-102); Mean Platelet Volume 11.4 FL (9.6-12.0); Monocytes # 0.6 10*3/uL (0.11-0.8); Monocytes % 11.2 % (1.7-12.7); Neutrophils # 3.1 10*3/uL (1.4-7.4); Platelet Count 103 T/CUMM (130-400); Red Cell Distribution Width 18.8 % (9.3-17.3); White Blood Count 5.1 T/CUMM (4-12)
[2018-07-04 05:44] LABS: Albumin 1.8 G/DL (3.4-5.0); Bilirubin,Total 1.4 MG/DL (0.2-1.0); Calcium 8.2 MG/DL (8.5-10.1); Osmolality,Calculated 273.5 MOS/KG (273-304); Potassium 4.5 MMOL/L (3.5-5.1); Total Protein 5.2 G/DL (6.4-8.3)
[2018-07-04 05:57] LABS: Red Blood Count 3.52 MC/CUMM (3.8-5.5)
[2018-07-04 05:58] LABS: Hemoglobin 10.8 GM/DL (14.0-18.0)
[2018-07-04] MEDS: PANTOPRAZOLE 40 MG TABLET PO SCH ×2 (06:32→18:42)
[2018-07-04] MEDS: METOCLOPRAMIDE 10 MG/10 ML UDCUP PO SCH ×4 (08:52→21:01)
[2018-07-04] MEDS: CALCIUM (CARBONATE)/VITAMIN D 600 MG-400 UNIT TABLET PO SCH ×2 (08:52→21:00)
[2018-07-04] MEDS: SPIRONOLACTONE 25 MG TABLET PO SCH (08:53)
[2018-07-04] MEDS: CARVEDILOL 6.25 MG TABLET PO SCH (08:53)
[2018-07-04] MEDS: CHOLESTYRAMINE 4 GM PACK PO SCH ×2 (08:53→21:01)
[2018-07-04] MEDS: amLODIPine 10 MG TABLET PO SCH (13:32)
[2018-07-04] MEDS: CARVEDILOL 12.5 MG TABLET PO SCH ×2 (13:32→21:01)
[2018-07-04] MEDS: MIRTAZAPINE 30 MG TABLET PO SCH (21:00)
[2018-07-04] MEDS: TEMAZEPAM 15 MG CAPSULE PO SCH (21:00)
[2018-07-05 05:41] LABS: Albumin 1.6 G/DL (3.4-5.0); Bilirubin,Total 0.8 MG/DL (0.2-1.0); Calcium 8.2 MG/DL (8.5-10.1); Potassium 4.8 MMOL/L (3.5-5.1); Total Protein 5.1 G/DL (6.4-8.3)
[2018-07-05 06:08] LABS: Basophils # 0.1 10*3/uL (0.0-0.2); Basophils % 1.6 % (0.0-0.8); Eosinophils # 0.1 10*3/uL (0.0-0.87); Eosinophils % 1.8 % (0.00-10.9); Hematocrit 33.7 VOL% (42.0-52.0); Hemoglobin 10.5 GM/DL (14.0-18.0); Immature Granulocytes % 1.4 %; Immature Granulocytes Absolute 0.06 #; Lymphocytes % 21.6 % (21.2-54.2); Mean Corpuscular HGB Conc 31.2 GM/DL (32-36); Mean Corpuscular Hemoglobin 31 PG (27-34); Mean Corpuscular Volume 99.7 FL (87-102); Mean Platelet Volume 11.4 FL (9.6-12.0); Monocytes # 0.6 10*3/uL (0.11-0.8); Monocytes % 13.9 % (1.7-12.7); NRBC # 0.02 10*3/uL; Neutrophils # 2.6 10*3/uL (1.4-7.4); Neutrophils % 59.7 % (38.7-73.9); Platelet Count 105 T/CUMM (130-400); Red Blood Count 3.38 MC/CUMM (3.8-5.5); Red Cell Distribution Width 18.6 % (9.3-17.3); White Blood Count 4.4 T/CUMM (4-12)
[2018-07-05 06:16] LABS: Hypochromasia 1+; Platelet Estimate Decreased
[2018-07-05] MEDS: PANTOPRAZOLE 40 MG TABLET PO SCH ×2 (06:19→21:25)
[2018-07-05] MEDS: CALCIUM (CARBONATE)/VITAMIN D 600 MG-400 UNIT TABLET PO SCH ×2 (08:47→21:13)
[2018-07-05] MEDS: METOCLOPRAMIDE 10 MG/10 ML UDCUP PO SCH ×4 (08:47→21:14)
[2018-07-05] MEDS: SPIRONOLACTONE 25 MG TABLET PO SCH (08:47)
[2018-07-05] MEDS: amLODIPine 10 MG TABLET PO SCH (08:47)
[2018-07-05] MEDS: CHOLESTYRAMINE 4 GM PACK PO SCH ×2 (08:48→21:14)
[2018-07-05] MEDS: CARVEDILOL 12.5 MG TABLET PO SCH ×2 (08:48→21:14)
[2018-07-05] MEDS: MIRTAZAPINE 30 MG TABLET PO SCH (21:13)
[2018-07-05] MEDS: TEMAZEPAM 15 MG CAPSULE PO SCH (21:14)
[2018-07-06 04:34] LABS: Basophils # 0.1 10*3/uL (0.0-0.2); Basophils % 1.2 % (0.0-0.8); Eosinophils # 0.1 10*3/uL (0.0-0.87); Eosinophils % 1.9 % (0.00-10.9); Hematocrit 30.4 VOL% (42.0-52.0); Hemoglobin 9.8 GM/DL (14.0-18.0); Immature Granulocytes % 1.7 %; Immature Granulocytes Absolute 0.08 #; Lymphocytes # 1.2 10*3/uL (1.4-4.0); Lymphocytes % 25.2 % (21.2-54.2); Mean Corpuscular HGB Conc 32.2 GM/DL (32-36); Mean Corpuscular Hemoglobin 32 PG (27-34); Mean Corpuscular Volume 98.1 FL (87-102); Mean Platelet Volume 10.9 FL (9.6-12.0); Monocytes # 0.7 10*3/uL (0.11-0.8); Monocytes % 14.7 % (1.7-12.7); Neutrophils # 2.7 10*3/uL (1.4-7.4); Neutrophils % 55.3 % (38.7-73.9); Platelet Count 135 T/CUMM (130-400); Red Cell Distribution Width 17.8 % (9.3-17.3); White Blood Count 4.8 T/CUMM (4-12)
[2018-07-06 05:01] LABS: Albumin 1.5 G/DL (3.4-5.0); Bilirubin,Total 1.1 MG/DL (0.2-1.0); Calcium 8.1 MG/DL (8.5-10.1); Osmolality,Calculated 273.7 MOS/KG (273-304); Potassium 4.7 MMOL/L (3.5-5.1); Total Protein 4.8 G/DL (6.4-8.3)
[2018-07-06] MEDS: PANTOPRAZOLE 40 MG TABLET PO SCH (06:23)
[2018-07-06] MEDS ORDERED: RIVAROXABAN 10 MG TABLET PO SCH (09:00)
[2018-07-06] MEDS: METOCLOPRAMIDE 10 MG/10 ML UDCUP PO SCH ×2 (09:37→16:19)
[2018-07-06] MEDS: CHOLESTYRAMINE 4 GM PACK PO SCH (09:38)
[2018-07-06] MEDS: SPIRONOLACTONE 25 MG TABLET PO SCH (09:46)
[2018-07-06] MEDS: CALCIUM (CARBONATE)/VITAMIN D 600 MG-400 UNIT TABLET PO SCH (09:54)
[2018-07-06] MEDS: amLODIPine 10 MG TABLET PO SCH (09:54)
[2018-07-06] MEDS: CARVEDILOL 12.5 MG TABLET PO SCH (09:55)
[2018-07-06 11:41] VITALS: BP 125/85
== END 2018-07-06 14:40 | disposition home health service (06) | DRG 432 ==
LOC: N.ED 17:43 → N.EDINP 21:24 → SUATTDRO 21:24 → N.4E 22:47
PROVIDERS: ADMIT Internal Medicine Geriatric Medicine; ATTEND Internal Medicine